=== PATIENT | female | born 1965 | race Caucasian/White ===

== ENCOUNTER → 2021-07-19 10:49 | Outpatient (CLI) | payer OTHER, SELFPAY ==
--- NOTE | 2021-07-19 10:54 | DI.RAD.S_ITS ---
PROCEDURE: XR DEXA AXIAL SKELETON INDICATIONS: Encounter for screening for osteoporosis COMPARISON: None. FINDINGS: This blank DEXA report has been sent in error by the PACS system. The correct and complete report will be forthcoming in 1-2 days. Thank you for your patience and understanding. Dictated by: Arlen Ralph MD, PhD on 07/19/2021 at 11:33 Approved by: Arlen Ralph MD, PhD on 07/19/2021 at 12:24
== END ==
PROVIDERS: Family Provider Family Medicine; PCP Family Medicine; Referring Provider Family Medicine; Visit Provider Family Medicine
DX: Z13.820 Encounter for screening for osteoporosis (principal); Z78.0 Asymptomatic menopausal state; Z82.62 Family history of osteoporosis
CPT/HCPCS: 77080

== ENCOUNTER 2021-08-14 17:32 | Observation (INO) | payer OTHER, SELFPAY ==
[2021-08-14] VITALS (8 sets, daily range): BP systolic 123–128; BP diastolic 57–72; PULSE 79–114; RESP 16–20; TEMP 36.8; O2SAT 82–100; BMI 26.6
--- NOTE | 2021-08-14 18:01 | DI.CT.S_ITS ---
PROCEDURE: CT ABDOMEN PELVIS W CON INDICATIONS: RLQ abd pain TECHNIQUE: After the administration of oral and IV contrast, axial sections were acquired from the lung bases to the pubic symphysis. Coronal and sagittal reformats were performed. For radiation dose reduction, the following was used: automated exposure control, adjustment of mA and/or kV according to patient size. COMPARISON: None. FINDINGS: Image quality: Excellent. Lung bases: Unremarkable. Heart: No significant findings. ABDOMEN: Liver: Unremarkable. Gallbladder: Prominent size. Trace pericholecystic fluid. No calcified gallstones seen. Biliary ducts: Unremarkable. Pancreas: Unremarkable. Spleen: Unremarkable. Adrenal Glands: Unremarkable. Kidneys and Ureters: No hydronephrosis. Stomach and Bowel: The appendix is located in the right pelvis. The appendix is dilated measuring up to 1.8 cm. There are appendiculoliths or concretions. There is a moderate surrounding inflammatory change. There is a small volume of free fluid. No free air is seen. No small bowel obstruction. Diverticulosis. Peritoneum: No large volume ascites. No pneumoperitoneum Ventral Wall: No significant hernia. Abdominal Nodes: No retroperitoneal or mesenteric adenopathy by size criteria. Prominent right lower quadrant node measuring 0.9 cm, (4/). Vessels: Aorta and inferior vena cava are normal in size. Minimal calcified plaque. Retroaortic left renal vein. PELVIS: Pelvic Organs: Unremarkable. Bladder: Unremarkable. Pelvic Nodes: No enlarged lymph nodes. Miscellaneous: No inguinal hernias are seen. Bones: Unremarkable. IMPRESSION: 1. Acute appendicitis. Appendiculoliths or concretions. No abscess or free air. Small volume of free fluid. 2. Trace pericholecystic fluid. Etiology is uncertain. Comment: Findings were discussed with Jasper Dent at the time of dictation. Dictated by: Frank Silver M.D. on 08/14/2021 at 19:19 Approved by: Frank Silver M.D. on 08/14/2021 at 19:26
--- NOTE | 2021-08-14 18:01 | ED.GENADULT ---
HPI - General Adult <Yajaira Bailon MD - Last Filed: 08/21/21 06:35> General Chief complaint: Abdominal Pain Stated complaint: Left Abd pain/lightheaded/no appetite [id number] Time Seen by Provider: 08/14/21 17:56 Source: patient Mode of arrival: Ambulatory History of Present Illness HPI narrative: Woman with no significant chronic medical issues presents with 2 days of abdominal pain. She notes that about 6 weeks ago she had a long( 3-4 weeks) episode of diarrhea with full workup about 2 weeks ago that did not reveal anything. The diarrhea has since resolved. Yesterday she noticed some upper epigastric periumbilical type pain. Decreased appetite today she is noticing pain localizing to the right lower quadrant with some radiation to the umbilicus. Continued decreased appetite and increasing pain. She does not describe any fevers. Has not had a bowel movement today is not having any dysuria or flank pain. No palpitations or chest pain. She is not feeling short of breath. Related Data Home Medications Medication Instructions Recorded Confirmed MELOXICAM 15 mg PO Q DAY PRN 08/14/21 08/14/21 Previous Rx's Medication Instructions Recorded amoxicillin 500 mg-potassium 1 tab PO Q12H #6 tab 08/16/21 clavulanate 125 mg tablet (Augmentin) Allergies Allergy/AdvReac Type Severity Reaction Status Date / Time Tetracyclines AdvReac Mild Redness of Verified 08/14/21 20:02 Skin Review of Systems <Yajaira Bailon MD - Last Filed: 08/21/21 06:35> Review of Systems Narrative: Remainder of complete review of systems is otherwise unremarkable except for that included in the HPI. Patient History <Yajaira Bailon MD - Last Filed: 08/21/21 06:35> Social History household members: spouse Smoking Status: Never smoker alcohol intake: current Exam <Yajaira Bailon MD - Last Filed: 08/21/21 06:35> Initial Vital Signs Initial Vital Signs: Vital Signs Pulse Rate 114 H 08/14/21 17:44 Respiratory Rate 20 08/14/21 17:44 Blood Pressure 123/57 L 08/14/21 17:44 Pulse Oximetry 99 08/14/21 17:44 General: Healthy appearing, in mild distress. Able to give a complete and coherent history. Well-nourished well-developed HEENT: Moist mucous membranes, normal sclera with reactive pupils, Neck: No JVD, supple Respiratory: Lungs are clear to auscultation, no wheezing no rales no rhonchi. Full and symmetrical air movement Cardiac: Regular rate and rhythm no murmurs no bruits Abdomen: Soft, tenderness in the right lower quadrant with developing rebound no guarding. No flank pain. Skin: Warm and dry, no rashes Neurologic: Grossly neurologically intact with no obvious asymmetries or abnormalities Extremities: No trauma, well perfused Psych: Cooperative, appropriate insight and affect <Jasper Dent DO - Last Filed: 08/14/21 20:54> Initial Vital Signs Initial Vital Signs: Vital Signs Pulse Rate 114 H 08/14/21 17:44 Respiratory Rate 20 08/14/21 17:44 Blood Pressure 123/57 L 08/14/21 17:44 Pulse Oximetry 99 08/14/21 17:44 Course <Yajaira Bailon MD - Last Filed: 08/21/21 06:35> Orders Ordered: Discontinued Medications Bupivacaine HCl (Bupivacaine 0.25% (Pf) Vial) 30 ml INJ NOW ONE Stop: 08/15/21 12:05 Last Admin: 08/15/21 12:05 Dose: 15 ml Documented by: STANLEY Fentanyl (Fentanyl 100 Mcg/2 Ml Inj) 0 mcg IV Q5M PRN PRN Reason: Pain, Moderate (4-6) Hydromorphone HCl (Hydromorphone 0.5 Mg Inj) 0.5 mg IV Q15MIN PRN PRN Reason: Pain, Last Admin: 08/15/21 08:20 Dose: 0.5 mg Documented by: Admin: 08/14/21 23:34 Dose: 0.5 mg Documented by: Admin: 08/14/21 20:30 Dose: 0.5 mg Documented by: Admin: 08/14/21 18:11 Dose: 0.5 mg Documented by: BRISA Hydromorphone HCl (Hydromorphone 2 Mg Inj) 0 mg IV Q5M PRN PRN Reason: Pain, Severe (7-10) Sodium Chloride (Normal Saline 0.9%) 1,000 mls @ 1,000 mls/hr IV BOLUS ONE Stop: 08/14/21 19:00 Last Admin: 08/14/21 18:10 Dose: 1,000 mls/hr Documented by: EDUJARROD Lactated Ringer's (Lactated Ringers) 1,000 mls @ 125 mls/hr IV CONT CHRISTINE Last Admin: 08/15/21 13:52 Dose: 125 mls/hr Documented by: Infusion: 08/15/21 13:24 Dose: 0 mls/hr Documented by: [email or web address] Admin: 08/15/21 04:45 Dose: 125 mls/hr Documented by: Infusion: 08/15/21 04:30 Dose: 125 mls/hr Documented by: Admin: 08/14/21 20:30 Dose: 125 mls/hr Documented by: VENANCIO Piperacillin Sod/Tazobactam (Sod 4.5 gm/ Sodium Chloride) 100 mls @ 200 mls/hr IV NOW ONE Stop: 08/14/21 19:33 Last Admin: 08/14/21 19:43 Dose: 200 mls/hr Documented by: ATILIO Piperacillin Sod/Tazobactam (Sod 4.5 gm/ Sodium Chloride) 100 mls @ 25 mls/hr IV Q8H [facility] Last Admin: 08/16/21 07:30 Dose: Not Given Documented by: Admin: 08/15/21 23:05 Dose: 25 mls/hr Documented by: Infusion: 08/15/21 19:40 Dose: 25 mls/hr Documented by: Admin: 08/15/21 15:40 Dose: 25 mls/hr Documented by: Infusion: 08/15/21 11:45 Dose: 0 mls/hr Documented by: Admin: 08/15/21 08:30 Dose: 25 mls/hr Documented by: Infusion: 08/15/21 03:32 Dose: 25 mls/hr Documented by: Admin: 08/14/21 23:32 Dose: 25 mls/hr Documented by: MELLO Sodium Chloride (Normal Saline 0.9%) 1,000 mls @ 1,000 mls/hr IV BOLUS ONE Stop: 08/15/21 15:16 Last Admin: 08/15/21 14:22 Dose: 1,000 mls/hr Documented by: CELESTINO Influenza Virus Vaccine (Influenza Vaccine Qiv 0.5 Ml Syringe) 0.5 ml IM .ONCE ONE Stop: 08/16/21 09:01 Last Admin: 08/16/21 08:44 Dose: 0.5 ml Documented by: CELESTINO Lorazepam (Lorazepam 2 Mg/Ml Inj) 0.25 mg IV NOW PRN PRN Reason: Anxiety Metoclopramide HCl (Metoclopramide 10 Mg/2 Ml Inj) 10 mg IV NOW PRN PRN Reason: Nausea And Vomiting Naproxen (Naproxen 250 Mg Tablet) 500 mg PO BIDWM [facility] Last Admin: 08/16/21 06:35 Dose: 500 mg Documented by: Admin: 08/15/21 21:26 Dose: 500 mg Documented by: MELLO Ondansetron HCl (Ondansetron 4 Mg/2 Ml Inj) 4 mg IV NOW ONE Stop: 08/14/21 18:02 Last Admin: 08/14/21 18:11 Dose: 4 mg Documented by: BRISA Ondansetron HCl (Ondansetron 4 Mg/2 Ml Inj) 4 mg IV Q6HR PRN PRN Reason: Nausea And Vomiting Ondansetron HCl (Ondansetron 4 Mg/2 Ml Inj) 4 mg IV NOW PRN PRN Reason: Nausea And Vomiting Oxycodone/Acetaminophen (Oxycodone/Acetaminophen 5/325 Tablet) 1 tab PO PACUNOW PRN PRN Reason: Mild or Moderate Pain Sodium Chloride (Sodium Chloride 0.9% Flush) 10 ml IV PRN PRN PRN Reason: Flush Sodium Chloride (Sodium Chloride 0.9% Flush) 10 ml IV BID [facility] Last Admin: 08/16/21 08:21 Dose: Not Given Documented by: Admin: 08/15/21 23:05 Dose: 10 ml Documented by: Admin: 08/15/21 08:46 Dose: 10 ml Documented by: CELESTINO Vital Signs Vital signs: Vital Signs - 8 hr 08/14/21 17:44 08/14/21 17:53 08/14/21 17:54 Pulse Rate 114 H 101 H 101 H Respiratory Rate 20 19 18 Blood Pressure 123/57 L 128/72 Pulse Oximetry 99 98 99 08/14/21 18:00 08/14/21 18:30 08/14/21 19:06 Pulse Rate 106 H 84 80 Respiratory Rate 16 16 Blood Pressure Pulse Oximetry 100 97 82 L 08/14/21 19:30 Pulse Rate 79 Respiratory Rate 18 Blood Pressure 128/72 Pulse Oximetry 99 <Jasperyeni Dent, DO - Last Filed: 08/14/21 20:54> Course Course Narrative: Patient received in sign-out from Dr. Bailon. I have performed an independent history and physical exam and am in complete agreement with her assessment and plan. CT shows appendicitis, I have discussed with on-call surgery, antibiotics, fluids, NPO, pain control, likely OR tomorrow by noon. Orders Ordered: Discontinued Medications Bupivacaine HCl (Bupivacaine 0.25% (Pf) Vial) 30 ml INJ NOW ONE Stop: 08/15/21 12:05 Last Admin: 08/15/21 12:05 Dose: 15 ml Documented by: STANLEY Fentanyl (Fentanyl 100 Mcg/2 Ml Inj) 0 mcg IV Q5M PRN PRN Reason: Pain, Moderate (4-6) Hydromorphone HCl (Hydromorphone 0.5 Mg Inj) 0.5 mg IV Q15MIN PRN PRN Reason: Pain, Last Admin: 08/15/21 08:20 Dose: 0.5 mg Documented by: Admin: 08/14/21 23:34 Dose: 0.5 mg Documented by: Admin: 08/14/21 20:30 Dose: 0.5 mg Documented by: Admin: 08/14/21 18:11 Dose: 0.5 mg Documented by: [email or web address] Hydromorphone HCl (Hydromorphone 2 Mg Inj) 0 mg IV Q5M PRN PRN Reason: Pain, Severe (7-10) Sodium Chloride (Normal Saline 0.9%) 1,000 mls @ 1,000 mls/hr IV BOLUS ONE Stop: 08/14/21 19:00 Last Admin: 08/14/21 18:10 Dose: 1,000 mls/hr Documented by: [email or web address] Lactated Ringer's (Lactated Ringers) 1,000 mls @ 125 mls/hr IV CONT CHRISTINE Last Admin: 08/15/21 13:52 Dose: 125 mls/hr Documented by: Infusion: 08/15/21 13:24 Dose: 0 mls/hr Documented by: Admin: 08/15/21 04:45 Dose: 125 mls/hr Documented by: Infusion: 08/15/21 04:30 Dose: 125 mls/hr Documented by: Admin: 08/14/21 20:30 Dose: 125 mls/hr Documented by: VENANCIO Piperacillin Sod/Tazobactam (Sod 4.5 gm/ Sodium Chloride) 100 mls @ 200 mls/hr IV NOW ONE Stop: 08/14/21 19:33 Last Admin: 08/14/21 19:43 Dose: 200 mls/hr Documented by: ATILIO Piperacillin Sod/Tazobactam (Sod 4.5 gm/ Sodium Chloride) 100 mls @ 25 mls/hr IV Q8H [facility] Last Admin: 08/16/21 07:30 Dose: Not Given Documented by: Admin: 08/15/21 23:05 Dose: 25 mls/hr Documented by: Infusion: 08/15/21 19:40 Dose: 25 mls/hr Documented by: Admin: 08/15/21 15:40 Dose: 25 mls/hr Documented by: Infusion: 08/15/21 11:45 Dose: 0 mls/hr Documented by: Admin: 08/15/21 08:30 Dose: 25 mls/hr Documented by: Infusion: 08/15/21 03:32 Dose: 25 mls/hr Documented by: Admin: 08/14/21 23:32 Dose: 25 mls/hr Documented by: MELLO Sodium Chloride (Normal Saline 0.9%) 1,000 mls @ 1,000 mls/hr IV BOLUS ONE Stop: 08/15/21 15:16 Last Admin: 08/15/21 14:22 Dose: 1,000 mls/hr Documented by: CELESTINO Influenza Virus Vaccine (Influenza Vaccine Qiv 0.5 Ml Syringe) 0.5 ml IM .ONCE ONE Stop: 08/16/21 09:01 Last Admin: 08/16/21 08:44 Dose: 0.5 ml Documented by: CELESTINO Lorazepam (Lorazepam 2 Mg/Ml Inj) 0.25 mg IV NOW PRN PRN Reason: Anxiety Metoclopramide HCl (Metoclopramide 10 Mg/2 Ml Inj) 10 mg IV NOW PRN PRN Reason: Nausea And Vomiting Naproxen (Naproxen 250 Mg Tablet) 500 mg PO BIDWM [facility] Last Admin: 08/16/21 06:35 Dose: 500 mg Documented by: Admin: 08/15/21 21:26 Dose: 500 mg Documented by: MELLO Ondansetron HCl (Ondansetron 4 Mg/2 Ml Inj) 4 mg IV NOW ONE Stop: 08/14/21 18:02 Last Admin: 08/14/21 18:11 Dose: 4 mg Documented by: BRISA Ondansetron HCl (Ondansetron 4 Mg/2 Ml Inj) 4 mg IV Q6HR PRN PRN Reason: Nausea And Vomiting Ondansetron HCl (Ondansetron 4 Mg/2 Ml Inj) 4 mg IV NOW PRN PRN Reason: Nausea And Vomiting Oxycodone/Acetaminophen (Oxycodone/Acetaminophen 5/325 Tablet) 1 tab PO PACUNOW PRN PRN Reason: Mild or Moderate Pain Sodium Chloride (Sodium Chloride 0.9% Flush) 10 ml IV PRN PRN PRN Reason: Flush Sodium Chloride (Sodium Chloride 0.9% Flush) 10 ml IV BID [facility] Last Admin: 08/16/21 08:21 Dose: Not Given Documented by: Admin: 08/15/21 23:05 Dose: 10 ml Documented by: Admin: 08/15/21 08:46 Dose: 10 ml Documented by: CELESTINO Consultations Consultation #1: Discussed with general surgery upon receipt of CT. He recommends admission to his service, ongoing fluids, antibiotics, pain control, NPO and will likely take to the OR tomorrow by noon Vital Signs Vital signs: Vital Signs - 8 hr 08/14/21 17:44 08/14/21 17:53 08/14/21 17:54 Pulse Rate 114 H 101 H 101 H Respiratory Rate 20 19 18 Blood Pressure 123/57 L 128/72 Pulse Oximetry 99 98 99 08/14/21 18:00 08/14/21 18:30 08/14/21 19:06 Pulse Rate 106 H 84 80 Respiratory Rate 16 16 Blood Pressure Pulse Oximetry 100 97 82 L 08/14/21 19:30 Pulse Rate 79 Respiratory Rate 18 Blood Pressure 128/72 Pulse Oximetry 99 Medical Decision Making <Yajaira Bailon MD - Last Filed: 08/21/21 06:35> Lab Data Result diagrams: 08/14/21 17:54 08/14/21 17:54 Labs: Lab Results 08/14/21 08/14/21 08/14/21 Range/Units 17:54 17:54 17:56 WBC 18.5 H (4.5-11.0) X10^3/uL RBC 4.77 (4.0-5.2) X10^6/uL Hgb 14.7 (12.0-16.0) g/dL Hct 42.9 (36-46) % MCV 90.0 (80-100) fL MCH 30.8 (26-34) PG MCHC 34.3 (30-36) % RDW 13.1 (11.6-14.8) % Plt Count 296 (150-400) X10^3/uL Neut % (Auto) 80.1 H (50-75) % Lymph % (Auto) 8.7 L (25-40) % [place] % (Auto) 10.9 (3-14) % Eos % (Auto) 0.0 L (2-4) % Baso % (Auto) 0.3 (0-2) % Neut # (Auto) 98964 H (9721-6953) /uL Lymph # (Auto) 1600 (7259-1453) /uL [place] # (Auto) 2000 H (0-900) /uL Eos # (Auto) 0 (0-450) /uL Baso # (Auto) 100 (0-100) /uL Sodium 136 L (137-145) mmol/L Potassium 3.9 (3.4-5.1) mmol/L Chloride 100 (98-107) mmol/L Carbon Dioxide 26 (22-32) mmol/L BUN 13 (7-17) mg/dL Creatinine 0.73 (0.52-1.04) mg/dL Estimated GFR > 60.0 (>60) mL/min BUN/Creatinine Ratio 17.8 (6-22) Glucose 113 H (70-100) mg/dL Calcium 9.6 (8.4-10.2) mg/dL Total Bilirubin 0.8 (0.2-1.3) mg/dL AST 24 (14-36) IU/L ALT 24 (<35) IU/L Alkaline Phosphatase 76 (38-126) U/L Total Protein 8.7 H (6.3-8.2) g/dL Albumin 4.9 (3.5-5.0) g/dL Globulin 3.8 (1.7-4.1) g/dL Albumin/Globulin Ratio 1.3 (1.0-2.8) Lipase 60 (23-300) U/L Ur Bilirubin Confirm Negative (Negative) Urine RBC 1-5/hpf (0-5/HPF) Urine WBC 1-5/hpf (0-5/HPF) Ur Squamous Epith Cells 0-1 /hpf (0-5/HPF) Urine Bacteria Occasional (0-1) (None) Urine Mucus 2+ H (Negative) Ur Culture Indicated? Cult not indicated SARS-CoV-2 (PCR) (Negative) 08/14/21 Range/Units 19:28 WBC (4.5-11.0) X10^3/uL RBC (4.0-5.2) X10^6/uL Hgb (12.0-16.0) g/dL Hct (36-46) % MCV (80-100) fL MCH (26-34) PG MCHC (30-36) % RDW (11.6-14.8) % Plt Count (150-400) X10^3/uL Neut % (Auto) (50-75) % Lymph % (Auto) (25-40) % [place] % (Auto) (3-14) % Eos % (Auto) (2-4) % Baso % (Auto) (0-2) % Neut # (Auto) (9615-5944) /uL Lymph # (Auto) (8878-9374) /uL [place] # (Auto) (0-900) /uL Eos # (Auto) (0-450) /uL Baso # (Auto) (0-100) /uL Sodium (137-145) mmol/L Potassium (3.4-5.1) mmol/L Chloride (98-107) mmol/L Carbon Dioxide (22-32) mmol/L BUN (7-17) mg/dL Creatinine (0.52-1.04) mg/dL Estimated GFR (>60) mL/min BUN/Creatinine Ratio (6-22) Glucose (70-100) mg/dL Calcium (8.4-10.2) mg/dL Total Bilirubin (0.2-1.3) mg/dL AST (14-36) IU/L ALT (<35) IU/L Alkaline Phosphatase (38-126) U/L Total Protein (6.3-8.2) g/dL Albumin (3.5-5.0) g/dL Globulin (1.7-4.1) g/dL Albumin/Globulin Ratio (1.0-2.8) Lipase (23-300) U/L Ur Bilirubin Confirm (Negative) Urine RBC (0-5/HPF) Urine WBC (0-5/HPF) Ur Squamous Epith Cells (0-5/HPF) Urine Bacteria (None) Urine Mucus (Negative) Ur Culture Indicated? SARS-CoV-2 (PCR) Negative (Negative) Urine Dip Bedside Urine Glucose Negative Bedside Urine Bilirubin + 1 Bedside Urine Ketone +++ 80 Urine Specific [place] 1.025 Bedside Urine Occult Blood + Bedside Urine pH 6 Bedside Urine Protein + 30 Bedside Urine Urobilinogen - Negative Bedside Urine Nitrite - Negative Bedside Urine Leukocytes - Negative Esterase Point of care testing: Urine Dip Bedside Urine Glucose Negative Bedside Urine Bilirubin + 1 Bedside Urine Ketone +++ 80 Urine Specific [place] 1.025 Bedside Urine Occult Blood + Bedside Urine pH 6 Bedside Urine Protein + 30 Bedside Urine Urobilinogen - Negative Bedside Urine Nitrite - Negative Bedside Urine Leukocytes - Negative Esterase <Jasper Dent DO - Last Filed: 08/14/21 20:54> Lab Data Labs: Lab Results 08/14/21 08/14/21 08/14/21 Range/Units 17:54 17:54 17:56 WBC 18.5 H (4.5-11.0) X10^3/uL RBC 4.77 (4.0-5.2) X10^6/uL Hgb 14.7 (12.0-16.0) g/dL Hct 42.9 (36-46) % MCV 90.0 (80-100) fL MCH 30.8 (26-34) PG MCHC 34.3 (30-36) % RDW 13.1 (11.6-14.8) % Plt Count 296 (150-400) X10^3/uL Neut % (Auto) 80.1 H (50-75) % Lymph % (Auto) 8.7 L (25-40) % [place] % (Auto) 10.9 (3-14) % Eos % (Auto) 0.0 L (2-4) % Baso % (Auto) 0.3 (0-2) % Neut # (Auto) 20123 H (4179-0598) /uL Lymph # (Auto) 1600 (4862-7531) /uL [place] # (Auto) 2000 H (0-900) /uL Eos # (Auto) 0 (0-450) /uL Baso # (Auto) 100 (0-100) /uL Sodium 136 L (137-145) mmol/L Potassium 3.9 (3.4-5.1) mmol/L Chloride 100 (98-107) mmol/L Carbon Dioxide 26 (22-32) mmol/L BUN 13 (7-17) mg/dL Creatinine 0.73 (0.52-1.04) mg/dL Estimated GFR > 60.0 (>60) mL/min BUN/Creatinine Ratio 17.8 (6-22) Glucose 113 H (70-100) mg/dL Calcium 9.6 (8.4-10.2) mg/dL Total Bilirubin 0.8 (0.2-1.3) mg/dL AST 24 (14-36) IU/L ALT 24 (<35) IU/L Alkaline Phosphatase 76 (38-126) U/L Total Protein 8.7 H (6.3-8.2) g/dL Albumin 4.9 (3.5-5.0) g/dL Globulin 3.8 (1.7-4.1) g/dL Albumin/Globulin Ratio 1.3 (1.0-2.8) Lipase 60 (23-300) U/L Ur Bilirubin Confirm Negative (Negative) Urine RBC 1-5/hpf (0-5/HPF) Urine WBC 1-5/hpf (0-5/HPF) Ur Squamous Epith Cells 0-1 /hpf (0-5/HPF) Urine Bacteria Occasional (0-1) (None) Urine Mucus 2+ H (Negative) Ur Culture Indicated? Cult not indicated SARS-CoV-2 (PCR) (Negative) 08/14/21 Range/Units 19:28 WBC (4.5-11.0) X10^3/uL RBC (4.0-5.2) X10^6/uL Hgb (12.0-16.0) g/dL Hct (36-46) % MCV (80-100) fL MCH (26-34) PG MCHC (30-36) % RDW (11.6-14.8) % Plt Count (150-400) X10^3/uL Neut % (Auto) (50-75) % Lymph % (Auto) (25-40) % [place] % (Auto) (3-14) % Eos % (Auto) (2-4) % Baso % (Auto) (0-2) % Neut # (Auto) (4046-4587) /uL Lymph # (Auto) (8785-9218) /uL [place] # (Auto) (0-900) /uL Eos # (Auto) (0-450) /uL Baso # (Auto) (0-100) /uL Sodium (137-145) mmol/L Potassium (3.4-5.1) mmol/L Chloride (98-107) mmol/L Carbon Dioxide (22-32) mmol/L BUN (7-17) mg/dL Creatinine (0.52-1.04) mg/dL Estimated GFR (>60) mL/min BUN/Creatinine Ratio (6-22) Glucose (70-100) mg/dL Calcium (8.4-10.2) mg/dL Total Bilirubin (0.2-1.3) mg/dL AST (14-36) IU/L ALT (<35) IU/L Alkaline Phosphatase (38-126) U/L Total Protein (6.3-8.2) g/dL Albumin (3.5-5.0) g/dL Globulin (1.7-4.1) g/dL Albumin/Globulin Ratio (1.0-2.8) Lipase (23-300) U/L Ur Bilirubin Confirm (Negative) Urine RBC (0-5/HPF) Urine WBC (0-5/HPF) Ur Squamous Epith Cells (0-5/HPF) Urine Bacteria (None) Urine Mucus (Negative) Ur Culture Indicated? SARS-CoV-2 (PCR) Negative (Negative) Urine Dip Bedside Urine Glucose Negative Bedside Urine Bilirubin + 1 Bedside Urine Ketone +++ 80 Urine Specific [place] 1.025 Bedside Urine Occult Blood + Bedside Urine pH 6 Bedside Urine Protein + 30 Bedside Urine Urobilinogen - Negative Bedside Urine Nitrite - Negative Bedside Urine Leukocytes - Negative Esterase Point of care testing: Urine Dip Bedside Urine Glucose Negative Bedside Urine Bilirubin + 1 Bedside Urine Ketone +++ 80 Urine Specific [place] 1.025 Bedside Urine Occult Blood + Bedside Urine pH 6 Bedside Urine Protein + 30 Bedside Urine Urobilinogen - Negative Bedside Urine Nitrite - Negative Bedside Urine Leukocytes - Negative Esterase Imaging Data CT scan - abdomen/pelvis: Radiologist's Impression: Cely Elise?(Iza)??89??F??12/11/1927 ? Allergy/Adv: adhesive tape, cephalexin, doxycycline, amlodipine, amoxicillin, clavulanic acid, erythromycin base, omeprazole, sulfamethoxazole, trimethoprim (More??) Close Chest X-Ray (Signed) Frank Silver - 08/14/21 Chest X-Ray (Signed) Shukri Erickson - 06/14/21 Hand X-Ray (Signed) Arlen Ralph - 05/20/21 Tibia/Fibula X-Ray (Signed) Silvano Perry - 04/25/21 Tibia/Fibula X-Ray (Signed) Mickey Rutherford - 04/25/21 Knee X-Ray (Signed) Chuck Armendariz - 04/25/21 Knee X-Ray (Signed) Mickey Rutherford - 04/25/[address] (Signed) Silvano Perry - 04/25/21 Echocardiogram Ultrasound (Signed) Justin Curtis - 12/13/20 Vascular Ultrasound (Signed) Shukri Erickson - 11/08/20 Chest X-Ray (Signed) Arlen Ralph - 09/07/20 Hand X-Ray (Signed) Chuck Armendariz - 08/29/19 Carotid Doppler Study (Signed) Chuck Armendariz - 02/24/19 Telemetry Strips 02/24/[address] (Signed) Socorro Mendoza - 02/24/19 Chest X-Ray (Signed) Fermín Whitley - 02/24/19 Thoracic Spine X-Ray (Signed) Socorro Mendoza - 02/18/19 Lumbar Spine X-Ray (Signed) Socorro Mendoza - 02/18/19 Outside DI 12/03/18 Vascular Ultrasound (Signed) Fermín Whitley - 09/16/18 Echocardiogram Ultrasound (Signed) Ricky Diehl - 08/22/18 Chest X-Ray (Signed) Silvano Perry - 08/11/[address] (Signed) Valdez,Michael - 08/09/18 Chest X-Ray (Signed) Mickey Rutherford - 08/09/[address] (Signed) Silvano Perry - 04/22/18 Cervical Spine X-Ray (Signed) SherwinPawan - 02/01/18 Radiology - Historical 10/05/17 Radiology - Historical 10/05/17 Radiology - Historical 02/26/17 Radiology - Historical 11/25/16 Radiology - Historical 11/25/16 Radiology - Historical 11/13/16 Radiology - Historical 12/17/15 Radiology - Historical 12/16/15 Radiology - Historical 12/16/15 Radiology - Historical 12/16/15 Radiology - Historical 12/15/15 Launch?[place] [address] XRay Report Signed Patient: Cely Elise MR#: [id number] : 12/11/1927 Acct:[id number] Age/Sex: 89 / F Date of Service: 08/14/21 Loc: Accession Number: [id number] ?? Procedure: XR chest 2V Ordering Provider: Yajaira Bailon MD PROCEDURE:? XR CHEST 2V ? INDICATIONS:? shortness of breath ? TECHNIQUE:? 2 views of the chest were acquired.? ? COMPARISON:? [facility], , XR CHEST 2V, 06/14/2021, 11:06.? [facility], , XR CHEST 2V, 09/07/2020, 10:20. ? FINDINGS:? ? Surgical changes and devices:? Left pacemaker. ? Lungs and pleura:? Increased interstitial markings.? Mild opacity at the left apex is unchanged.? Mild opacity in the right mid lung field.? Left pleural effusion.? Possible trace right pleural effusion.? No pneumothorax.? Prominent lung volumes. ? Mediastinum:? Mediastinal contours are unchanged.? Heart size is enlarged.? ? Bones and chest wall:? No suspicious bony abnormalities.? Soft tissues appear unremarkable.? ? IMPRESSION:? Small left pleural effusion. ? Similar interstitial prominence and prominent lung volumes.? Mild opacity in the right mid lung field and left upper lobe.? This could be due to atelectasis, scarring, or pneumonia.? ? ? Dictated by: Frank Silver M.D. on 08/14/2021 at 18:54 ? ? Approved by: Frank Silver M.D. on 08/14/2021 at 18:59? Discharge Plan Departure Patient Disposition: Admitted as Observation Clinical Impression: Acute appendicitis Admit Date/Time: 08/14/21 19:42 Admit Provider: Dani Lama ED Sign-out <Yajaira Bailon MD - Last Filed: 08/21/21 06:35> Cosign ED Attending Sagarature Attestation: I was immediately available in the department for consultation throughout this patient's visit. I agree with documentation as above. Yajaira Bailon MD
[2021-08-14 18:10] LABS: Add Manual Diff / Slide Review NO; Basophils Absolute Auto 100 /uL (0-100); Basophils Percent Auto 0.3 % (0-2); Eosinophils Absolute Auto 0 /uL (0-450); Hematocrit 42.9 % (36-46); Hemoglobin 14.7 g/dL (12.0-16.0); Lymphocytes Absolute Auto 1600 /uL (1100-4500); Lymphocytes Percent Auto 8.7 % (25-40); Mean Corpuscular HGB Conc 34.3 % (30-36); Mean Corpuscular Hemoglobin 30.8 PG (26-34); Monocytes Absolute Auto 2000 /uL (0-900); Monocytes Percent Auto 10.9 % (3-14); Neutrophils Absolute Auto 14800 /uL (1500-7000); Neutrophils Percent Auto 80.1 % (50-75); Platelet Count 296 X10^3/uL (150-400); Red Blood Cell Count 4.77 X10^6/uL (4.0-5.2); Red Cell Distribution Width 13.1 % (11.6-14.8); White Blood Cell Count 18.5 X10^3/uL (4.5-11.0)
[2021-08-14] MEDS: SODIUM CHLORIDE 0.9% 1,000 ML 1000 ML IV (18:10)
[2021-08-14] MEDS: ONDANSETRON 4 MG/2 ML INJ IV (18:11)
[2021-08-14] MEDS: HYDROMORPHONE 0.5 MG INJ IV ×3 (18:11→23:34)
[2021-08-14 18:18] LABS: Alanine Aminotransferase 24 IU/L (<35); Albumin 4.9 g/dL (3.5-5.0); Albumin Globulin Ratio 1.3 (1.0-2.8); Alkaline Phosphatase 76 U/L (38-126); Aspartate Aminotransferase 24 IU/L (14-36); BUN Creatinine Ratio 17.8 (6-22); Bilirubin Total 0.8 mg/dL (0.2-1.3); Blood Urea Nitrogen 13 mg/dL (7-17); Calcium 9.6 mg/dL (8.4-10.2); Carbon Dioxide 26 mmol/L (22-32); Chloride 100 mmol/L (98-107); Estimated Glomerular Filt Rate > 60.0 mL/min (>60); Globulin 3.8 g/dL (1.7-4.1); Glucose 113 mg/dL (70-100); HEMOLYSIS < 15 (0-50); Lipase 60 U/L (23-300); Potassium 3.9 mmol/L (3.4-5.1); Sodium 136 mmol/L (137-145); Total Protein 8.7 g/dL (6.3-8.2)
[2021-08-14 18:36] LABS: Bacteria Urine Occasional (0-1); Culture Indicated Urine Cult Not Indicated; Ictotest Urine Negative (Negative); Mucus Urine 2+ (Negative); RBC Urine 1-5/HPF (0-5/HPF); Squamous Epithelial Cell Urine 0-1 /HPF (0-5/HPF); WBC Urine 1-5/HPF (0-5/HPF)
--- NOTE | 2021-08-14 19:35 | PC.NURSE ---
Pt c/o LRQ pain 8/10, rebound tenderness, 12 hrs of intermittent vomiting and and severe cramping. MD at bedside.
[2021-08-14] MEDS: PIPERACILLIN/TAZO 4.5 GM in SODIUM CHLORIDE 0.9% 100 ML 200 ML IV (19:43)
[2021-08-14 19:44] LABS: COVID19 -Nasal RAPID Negative (Negative)
[2021-08-14] MEDS: LACTATED RINGERS 1,000 ML 125 ML IV (20:30)
[2021-08-14] MEDS: PIPERACILLIN/TAZO 4.5 GM in SODIUM CHLORIDE 0.9% 100 ML 25 ML IV (23:32)
[2021-08-15] VITALS (16 sets, daily range): BP systolic 87–119; BP diastolic 42–61; PULSE 58–91; RESP 11–18; TEMP 36.6–37.9; O2SAT 93–99; BMI 26.6
--- NOTE | 2021-08-15 | PATH_ITS ---
[facility] Accession Number: [id number] No. of containers..01 Tissue . 01 Material submitted: . appendix - APPENDIX . 02 Diagnosis: Appendix, Appendectomy: Appendix with an eroded mucosal surface, acute appendicitis and serositis, and a focus suggestive of perforation. Fecaliths present (up to 11 mm in greatest dimension). MRV 08/18/2021 1054 Local . 02 Electronically signed: . Gardenia Moore MD, Pathologist NPI- [id number] . 01 Gross description: . Received in formalin, labeled with the patient's name and additionally labeled appendix, is a vermiform appendix measuring 9.5 cm in length and up to 1.2 cm in diameter. There is an attached mesoappendix measuring 5.5 x 2.0 x 1.7 cm. The serosal surface is cary-brown with multiple areas of adherent pale exudate. A potential perforation measuring 3.0 x 1 mm is seen 2.0 cm from the surgical margin. The surgical margin is inked blue. The appendix is sectioned revealing multiple fecaliths measuring up to 1.1 cm in greatest dimension. The appendix has areas of distention with the lumen up to 1.2 cm in diameter. The appendiceal wall averages 2.0 mm in thickness. No other masses or lesions are identified. 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 A1: Blue-inked margin and area of potential perforation. A2: Cross sections of appendix with attached exudate. A3: Bisected tip. ([id number]) A4-A6: Remaining specimen entirely submitted. ([id number]) /MRV 08/18/2021 1046 Local . 02 Pathologist provided ICD-10: K35.20 . 02 CPT . 684764 Specimen Comment: A courtesy copy of this report has been sent to [facility] Pathology Performed at: 01 [facility] Cytology [address] [place] [address], [place], [place] [id number] MD Michael Kelly MD Phone: [phone] Performed at: [address] [facility] [address] [place], [place] [id number] MD Elvia Holder MD Phone: [phone]
--- NOTE | 2021-08-15 02:39 | PC.NURSE ---
2000: admit from ED. dx appendicitis. patient is a/o, voices needs. indep w/ mobility and ambulation. has a steady gait. reports pain to RLQ approx 6/10, 3/[address] Lama: surgery is scheduled for 11:00 AM. NPO after midnight, and orders for PRN zofran, dilauded, and zosyn thru the night. 0115: VS: 93/42, pulse 86 temp 100.2. continues w/ IVF.. LR at 125/hour. 0230: patient reports feeling a sharp pain to RLQ, similar to a pop sound. her skin is warm, dry, w/ flushed reddish cheeks. temp is now 99.7 and reports her pain has changed from pinpoint to more spread out. 3/10 at rest, 6/10 w/ movement. call to Dr. Lama to update on above info. no new orders received: he will still continue to have surgery scheduled for 11 am. patient notified of this.
[2021-08-15] MEDS: LACTATED RINGERS 1,000 ML 125 ML IV ×2 (04:45→13:52)
[2021-08-15] MEDS: HYDROMORPHONE 0.5 MG INJ IV (08:20)
[2021-08-15] MEDS: PIPERACILLIN/TAZO 4.5 GM in SODIUM CHLORIDE 0.9% 100 ML 25 ML IV ×3 (08:30→23:05)
[2021-08-15] MEDS: SODIUM CHLORIDE 0.9% FLUSH 10 ML IV ×2 (08:46→23:05)
--- NOTE | 2021-08-15 08:50 | CM.DANOTE ---
DCP: Case received, EMR reviewed and met with patient. Introduced self and role. Was able to obtain information regarding patient's baseline activity status prior to hospitalization. DCP assessment completed with information currently available. Patient is a 56 year old female who admitted yesterday evening to the care of the hospitalist team. PCP: Dr. Barr. Payer: [employer]. Patient came to the hospital via private vehicle secondary to having left abdominal discomfort, as well as decreased appetite and dizziness. Patient holds diagnosis of acute appendicitis. She is scheduled for surgery at approximately 11:00am this morning. Met with patient in her room. She is pleasant, alert and oriented. She was laying in bed, NPO. She is independent at her baseline, and she resides in [place] [facility] with her significant other, Santiago Mccann. 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 P: DCP to continue to follow. Patient should be able to go home when she is deemed medically stable. Kailey Rock RN/Extractive Metallurgist Discharge Planning/Care Management CM Discharge Assessment Start: 08/15/21 08:49 Freq: Status: Active Protocol: Document 08/15/21 08:49 (Rec: 08/15/21 08:50 [id number]) Discharge Planning Assessment Assigned Dust Collector Attendant Kailey Rock RN/Extractive Metallurgist Advance Directives? No History Provided By Patient,Medical Record Prior Living Arrangements House Household Members spouse Type of transporation used prior to Drives own vehicle admit Independent with ADL's Yes Is patient alert and oriented? Yes Caregiver for Another No Barriers to Discharge No Discharge Plan Home Transportation Arrangement Spouse Referrals Initiated None needed Whiteboard Updated in Patient Room with Yes name and ext. # of Dust Collector Attendant Review Status In Process Next Review Type Continued Stay Review
--- NOTE | 2021-08-15 11:22 | P.HP_ITS ---
History of Present Illness History of Present Illness Date Patient Seen: 08/15/21 Time Patient Seen: 11:22 Chief complaint: Left Abd pain/lightheaded/no appetite x1day Narrative: 56-year-old woman who presented to the emergency room last night complaining of 1-2 days of abdominal pain which started out in the umbilical region and localized to the right lower quadrant. She also notes that she has had umbilical discomfort for quite some time maybe a year or more. A CT scan showed acute appendicitis with appendicoliths. No mention of yanni perforation. She h as never had abdominal surgery before. She was started on Zosyn in the ER. Patient History Family & Social History Social History: household members spouse Prior Living Arrangements House Safety & Behavioral: Feels Safe in Current Yes Environment Been Physically Hurt or No Threatened By a Person Suicidal Ideation Description None Suicide Plan Description No Plan Tobacco & Substance use: Smoking Status Never smoker alcohol intake current alcohol intake frequency 0-2 drinks per day Substance Use Type does not use Meds Home Medications and Allergies Home Medications Medication Instructions Recorded Confirmed Type MELOXICAM 15 mg PO Q DAY PRN 08/14/21 08/14/21 History Allergies Allergy/AdvReac Type Severity Reaction Status Date / Time Tetracyclines AdvReac Mild Redness of Verified 08/14/21 20:02 Skin Exam Vital Signs (past 8 hours): - 08/15/21 06:00 08/15/21 10:00 08/15/21 10:52 Temperature 99.9 F H 99.8 F H 99.5 F Pulse Rate 86 82 75 Respiratory Rate 16 18 16 Blood Pressure 119/58 L 106/53 L 97/55 L Pulse Oximetry 96 98 96 Oxygen Delivery Method Room Air Oxygen Flow Rate 0 Const General: healthy appearing Resp Effort & Inspection: normal respiratory effort GI Other: Tender to palpation in the right lower quadrant Objective Labs Result Diagrams: 08/14/21 17:54 08/14/21 17:54 Labs: Laboratory Results - last 24 hr 08/14/21 08/14/21 08/14/21 17:54 17:54 17:56 WBC 18.5 H RBC 4.77 Hgb 14.7 Hct 42.9 MCV 90.0 MCH 30.8 MCHC 34.3 RDW 13.1 Plt Count 296 Neut % (Auto) 80.1 H Lymph % (Auto) 8.7 L [place] % (Auto) 10.9 Eos % (Auto) 0.0 L Baso % (Auto) 0.3 Neut # (Auto) 53422 H Lymph # (Auto) 1600 [place] # (Auto) 2000 H Eos # (Auto) 0 Baso # (Auto) 100 Sodium 136 L Potassium 3.9 Chloride 100 Carbon Dioxide 26 BUN 13 Creatinine 0.73 Estimated GFR > 60.0 BUN/Creatinine Ratio 17.8 Glucose 113 H Calcium 9.6 Total Bilirubin 0.8 AST 24 ALT 24 Alkaline Phosphatase 76 Total Protein 8.7 H Albumin 4.9 Globulin 3.8 Albumin/Globulin Ratio 1.3 Lipase 60 Ur Bilirubin Confirm Negative Urine RBC 1-5/hpf Urine WBC 1-5/hpf Ur Squamous Epith Cells 0-1 /hpf Urine Bacteria Occasional (0-1) Urine Mucus 2+ H Ur Culture Indicated? Cult not indicated SARS-CoV-2 (PCR) 08/14/21 19:28 WBC RBC Hgb Hct MCV MCH MCHC RDW Plt Count Neut % (Auto) Lymph % (Auto) [place] % (Auto) Eos % (Auto) Baso % (Auto) Neut # (Auto) Lymph # (Auto) [place] # (Auto) Eos # (Auto) Baso # (Auto) Sodium Potassium Chloride Carbon Dioxide BUN Creatinine Estimated GFR BUN/Creatinine Ratio Glucose Calcium Total Bilirubin AST ALT Alkaline Phosphatase Total Protein Albumin Globulin Albumin/Globulin Ratio Lipase Ur Bilirubin Confirm Urine RBC Urine WBC Ur Squamous Epith Cells Urine Bacteria Urine Mucus Ur Culture Indicated? SARS-CoV-2 (PCR) Negative Assessment & Plan Assessment and plan (1) Acute appendicitis: Status: Acute Plan We reviewed the risks and benefits of laparoscopic appendectomy and she would like to proceed. I explained that if her appendix is severely inflamed or perforated we will leave the drain she would likely remain in the hospital for several days for IV antibiotics. COVID-19 COVID-19 status: Negative Result date/Date tested (Pos, Neg/Pending): 08/14/21 Time Spent With Patient Critical Care time: I spent a total of [] minutes of critical care time on this patient's care today; this time is exclusive of procedural time.
--- NOTE | 2021-08-15 11:56 | SUR.OPER ---
Supine on padded OR bed, head on pillow, arms padded and tucked at sides, legs uncrossed, safety belt at thigh, tape over blanket over lower legs .Gel pad under bilateral heels.
--- NOTE | 2021-08-15 11:58 | SUR.OPER ---
Patients glasses in patients own glass case, patient label placed. Kept in PACU for patient. Patient voided around 1130 prior to entering OR. Warm blankets placed to patients lower body and around neck and head during procedure.
[2021-08-15] MEDS: BUPIVACAINE 0.25% (PF) VIAL 30 ML INJ (12:05)
--- NOTE | 2021-08-15 12:39 | PM.OP.1 ---
Operative Date/Time/Diagnoses Date of procedure: 08/15/21 Time of procedure: 12:39 Pre-op diagnosis: Acute appendicitis Post-op diagnosis: same Procedure & Clinicians Procedure: Laparoscopic appendectomy Same procedure as scheduled: Yes Indications: Acute appendicitis Surgeon: Dani Lama Click Yes if Unassisted: Yes Anesthesia Type: General Operative Notes Findings: Inflamed, suppurative appendicitis Estimated Blood Loss (mL): 15 Procedure in detail: Procedure in detail: The patient was on IV antibiotics. The patient was brought to the operating room, placed on the table in the supine position and general endotracheal anesthesia was induced. A time-out was performed. The abdomen was prepped and draped in the usual fashion. After injection of 0.25% Marcaine a 1 cm infraumbilical incision was created with a 15 blade scalpel. The umbilical stalk was grasped with a Merrick clamp to elevate the abdominal wall. The infraumbilical midline fascia was cleared over 1 cm and the fascia was scored with cautery. The peritoneum was pierced with a Peon clamp. The Jaime port was placed and the abdomen was insufflated to 15 mmHg. The camera was inserted and there was no evidence of any injury from the entry. Next, 5 mm ports were placed in the suprapubic and left lower quadrant positions under direct vision. The patient was placed in Trendelenburg with the right-side elevated. The appendix was initially covered by the terminal ileum as it descended into the right hemipelvis. The terminal ileum was bluntly from the appendix which was notably distended and suppurative without yanni perforation. There was some patchy necrosis and an area of the appendix near the proximal 3rd which was likely the location of 1 of the appendicoliths. The mesoappendix was divided with the LigaSure to the junction of the appendix and cecum. Two PDS Endoloops were placed at the base and a 3rd endoloop was placed about a cm distally and the appendix was divided sharply. The specimen was placed in a Endo-Catch bag. Some fluid was suctioned from around the base of the appendix and pelvis. Additional murky fluid was suctioned from the right upper quadrant lateral to liver. The table was flattened and the terminal ileum and omentum were allowed to slide in over the appendiceal stump. Finally, the 5 mm ports were removed under direct vision. The pneumoperitoneum was released and the Jaime port was removed followed by the Endo-Catch bag. Additional local was injected into the fascia and the infraumbilical incision was closed with 2 interrupted 2-0 Vicryl sutures. The skin incisions were closed with 4 Monocryl. Steri-Strips were applied followed by Band-Aids. EBL: 5 mL Specimen: Appendix Post-operative Condition: stable Disposition: PACU
[2021-08-15] MEDS: SODIUM CHLORIDE 0.9% 1,000 ML 1000 ML IV (14:22)
--- NOTE | 2021-08-15 19:43 | PC.NURSE ---
Pt up from PACU this afternoon at approximately 1430 she is A&Ox3, and denies pain >2 all evening. She initially has low BP 80's/40's, and MD notified. Per orders she received x1 liter NS bolus. She is able to void, have a small BM, ambulate around her room and eat about 50% of dinner. Her dressings are C/D/I. She denies dizziness or nausea. Continuous monitoring.
--- NOTE | 2021-08-15 20:20 | PC.NURSE ---
Addendum entered by Brooke Pierre R.N. 08/16/21 07:13: patient asking about d/c, [place] ferry. call to Dr. Lama, he will be here w/in the hour. Addendum entered by Brooke Pierre R.N. 08/16/21 02:00: slight dry cough noted at NOC. hot tea w/ honey offered. couch improved. Addendum entered by Brooke Pierre R.N. 08/15/21 20:56: patient requesting something for gas pains, and Aleve call to MD, order received for Naproxen 500mg PO Q6 hours PRN. ice pack offered for post op pain. Original Note: 1999: s/p appy earlier today. ambulating in room independantly w/o problems. reports 2/10 pain, 3 puncture sites on ABD are covered, elastic bandaides are CDI. patient reports feeling much better, and passing gas. order at shift change to SL PIV. slightly hypotensive, 90/40. PO fluids encouraged, available at bedside.
[2021-08-15] MEDS: NAPROXEN 250 MG TABLET 500 MG PO (21:26)
[2021-08-16 04:33] VITALS: BP 92/62; PULSE 61; RESP 18; TEMP 36.5; O2SAT 98
[2021-08-16] MEDS: NAPROXEN 250 MG TABLET 500 MG PO (06:35)
[2021-08-16 07:15] VITALS: BP 105/53; PULSE 67; RESP 18; TEMP 37.1; O2SAT 98
--- NOTE | 2021-08-16 08:39 | PM.DS.1 ---
History of Present Illness History of Present Illness Chief complaint: Left Abd pain/lightheaded/no appetite x1day Narrative: 56-year-old woman who presented to the emergency room last night complaining of 1-2 days of abdominal pain which started out in the umbilical region and localized to the right lower quadrant. She also notes that she has had umbilical discomfort for quite some time maybe a year or more. A CT scan showed acute appendicitis with appendicoliths. No mention of yanni perforation. She has never had abdominal surgery before. She was started on Zosyn in the ER. Discharge Providers Provider Date of admission: 08/14/21 19:42 Discharge Date: 08/16/21 Primary care physician: Alysia Barr MD Discharge provider: Dani Lama MD Summary Hospital Course Discharge Diagnosis: Acute appendicitis Hospital Course: The patient was admitted with acute appendicitis, went to the OR on 08/15/21 for a laparoscopic appendectomy. She did well following surgery. She was on zosyn while in the hospital and was discharged home on augmentin Exam Vital Signs (past 8 hours): - 08/16/21 04:33 08/16/21 07:15 Temperature 97.7 F 98.8 F Pulse Rate 61 67 Respiratory Rate 18 18 Blood Pressure 92/62 105/53 L Pulse Oximetry 98 98 Oxygen Delivery Method Room Air Oxygen Flow Rate 0 Objective Labs Result Diagrams: 08/14/21 17:54 08/14/21 17:54 PFSH Social History household members: spouse Smoking Status: Never smoker alcohol intake: current Discharge Plan Discharge Plan Patient Disposition: Home Provider Discharge Comment: No lifting greater than 20 lb for 2 weeks. Okay to remove the outer dressing and shower after 24 hours. Leave the Steri-Strips on until they start to peel off in 1-2 weeks. Discharge orders & Medications Prescriptions: New amoxicillin-pot clavulanate [Augmentin] 500-125 mg tablet 1 tab PO Q12H Qty: 6 0RF Continued MELOXICAM 15 mg PO Q DAY PRN (Reason: Pain (Scale Score 1-3)) 0RF Follow up/Referrals: Alysia Barr MD [Primary Care Provider] - Visit Report/Discharge Packet Instructions: DI for an Appendectomy, DI for Laparoscopy, [facility]: Wound Care Discharge Data Primary Care Provider: Alysia Barr Attending Provider: Dani Lama
[2021-08-16] MEDS: INFLUENZA VACCINE QIV 0.5 ML SYRINGE IM (08:44)
--- NOTE | 2021-08-16 09:34 | PC.NURSE ---
Pt is A&OX3. Ambulating around in her room independently without feeling dizzy. She tolerates breakfast well this a.m. MD at bedside this a.m. clearing patient for discharge home. She verbalizes understanding of follow up lab work with her primary doctor as well as activity, incision site care, s/sx of infection, her antibiotics, and a follow up tele appointment with MD Jenkins. She reports pain well controlled this a.m.. She states she has all of her belongings and is escorted by HE[employer]ER via w/chair to private vehicle with her for discharge home to [facility] at approximately 0920.
--- NOTE | 2021-09-16 13:56 | PC.NURSE ---
Late Entry; NS infusion initiated 08/14 at 18:10, complete at 19:11. Piperacillin infusion initiated 08/14 at 19:43, complete at 20:14.
== END 2021-08-16 09:20 | disposition home or self-care (01) ==
LOC: ED 18:09 → AC 19:43
PROVIDERS: Emergency Medicine; Admitting Provider Surgery; Emergency Provider Emergency Medicine; Family Provider Family Medicine; PCP Family Medicine; Referring Provider Emergency Medicine; Visit Provider Surgery
PROC: 0DTJ4ZZ Resection of Appendix, Percutaneous Endoscopic Approach (ICD-10-PCS; CPT 44970; principal; 2021-08-15 11:30)
DX: K35.20 Acute appendicitis with generalized peritonitis, without abscess (principal); Z20.822 Contact with and (suspected) exposure to COVID-19
CPT/HCPCS: 44970; 36415; 74177; 80053; 81003; 81015; 83690; 85025; 87635; 90471; 90656; 96361; 96365; 96375; 99220; 99284; C9803; G0378; J1100; J1170; J1885; J2250; J2405; J2543; J2704; J3010; Q2038; Q9967